=== PATIENT | male | born 1945 | race Caucasian/White ===

== ENCOUNTER → 2017-10-26 | Outpatient (CLI) | payer MEDICARE ==
[~2017-10-26] MED LIST: AZIT500T47 PO; BENZ-23 PO; CEP500 PO; CLOT15CR6 TP; CLOT15CR64 TP; COLD AND COUGH PO; GUAI-645 PO; HYDR-2966 PO; HYDR12.558 PO; HYDR12.561 PO; HYDR473S4 PO; LORA-630 PO; NAPR220C12 PO; OMEP-137 PO; PNEU0.5D3 IM; PRE20 PO; PRED20TA6 PO; RAMI10CA52 PO; RANI-324 PO
[2017-10-26 12:44] LABS: PLATELET COUNT, AUTOMATED 239 K/uL (150-450)
[2017-10-26 13:23] LABS: LDL CHOLESTEROL 101 mg/dl
== END ==
LOC: LAB 12:28
PROVIDERS: ATTEND Internal Medicine
DX: Z12.5 Encounter for screening for malignant neoplasm of prostate (principal); I10 Essential (primary) hypertension; Z86.19 Personal history of other infectious and parasitic diseases
CPT/HCPCS: 36415; 81001; 84443; 85025; G0103; 82040; 82247; 82310; 82374; 82435; 82465; 82565; 82947; 83718; 84075; 84132; 84153; 84155; 84295; 84450; 84460; 84478; 84520

== ENCOUNTER 2018-06-01 13:47 | Emergency (ER) | payer MEDICARE ==
[~2018-06-01 13:47] MED LIST changes: -RAMI10CA52 PO; +RAMI10CA9 PO; -RANI-324 PO; +RANI-366 PO
--- NOTE | 2018-06-01 13:49 | ER Report ---
History and Physical Time Seen By MD: 13:49 (BIANCA KUMAR MD) HPI/ROS CHIEF COMPLAINT: Fall, head injury HISTORY OF PRESENT ILLNESS: Patient is a 72-year-old male with no prior cardiac history who presents emergency Department with chest pain that began approximately 90 minutes ago. The pain began spontaneously was nonexertional. He does seem to have a pleuritic component to it is described as discomfort all across the chest and to both arms there is no radiation down the neck. Patient states pain is currently 6 out of 10 in intensity. The pain does not seem exertional or reproducible to palpation. Patient does state that he was doing some chest presses and flies yesterday as exercise. No prior similar episodes in the past. Patient is a former smoker quit 10 years ago has a history of borderline high cholesterol which is not treated and hypertension. He shouldn't denies nausea or vomiting and denies diaphoresis. REVIEW OF SYSTEMS: Constitutional: No fever, no chills. Eyes: No discharge. ENT: No sore throat. Cardiovascular: Chest pain Respiratory: No cough, no shortness of breath. Gastrointestinal: No abdominal pain, no vomiting. Genitourinary: No hematuria. Musculoskeletal: No back pain. Skin: No rashes. Neurological: No headache. (BIANCA KUMAR MD) Allergies: Coded Allergies: losartan (Verified Allergy, Unknown, 06/01/18) venom-wasp (Verified Allergy, Unknown, SWELLING, 06/01/18) Home Meds Active Scripts Ramipril (RAMIPRIL) 10 Mg Capsule, 10 MG PO QDAY, #90 TAB 3 Refills Prov:MENDOZA JAMES MD 01/01/18 Hydrochlorothiazide (HYDROCHLOROTHIAZIDE) 25 Mg Tablet, 1 TAB PO QDAY, #90 TAB 3 Refills Prov:MENDOZA JAMES MD 01/01/18 Discontinued Reported Medications Omeprazole (OMEPRAZOLE) 20 Mg Tablet.dr, 20 MG PO QDAY, TAB 03/02/15 Discontinued Scripts Clotrimazole/Betamethasone Dip (CLOTRIMAZOLE-BETAMETHASONE CRM) 15 Gm Cream..g., 1 DIOR TP BID for 7 Days, #1 TUBE 0 Refills Prov:BARRY MADRIGAL APRN [employer] 08/05/17 Past Medical/Surgical History History of tinnitus, hypertension, hepatitis C, gastroesophageal reflux disease, skin cancer (BIANCA KUMAR MD) Hx Smoking: Yes (1 cig a day) Smoking Status: Former Smoker (BIANCA KUMAR MD) Constitutional Vital Sign - Last 24 Hours 06/01/18 06/01/18 06/01/18 06/01/18 13:47 13:50 13:52 13:52 Temp 97.8 Pulse ??? 70 67 Resp 16 B/P (MAP) 173/99 (123) 173/99 Pulse Ox 97 98 O2 Delivery Room Air 06/01/18 06/01/18 06/01/18 06/01/18 13:57 14:00 14:02 14:04 Pulse 62 65 Resp 22 12 B/P (MAP) 165/108 (127) Pulse Ox 98 99 O2 Flow Rate 2.0 06/01/18 06/01/18 06/01/18 06/01/18 14:07 14:12 14:15 14:17 Pulse 64 62 62 Resp 28 31 19 B/P (MAP) 170/108 (128) Pulse Ox 94 97 97 06/01/18 06/01/18 06/01/18 06/01/18 14:22 14:27 14:30 14:32 Pulse 56 59 54 Resp 27 16 12 B/P (MAP) 156/93 (114) Pulse Ox 97 98 96 06/01/18 06/01/18 06/01/18 06/01/18 14:37 14:42 14:45 14:47 Pulse 54 58 56 Resp 12 13 8 B/P (MAP) 140/82 (101) Pulse Ox 96 97 98 06/01/18 06/01/18 06/01/18 06/01/18 14:52 14:57 15:00 15:02 Pulse 53 58 51 Resp 8 16 16 B/P (MAP) 121/76 (91) Pulse Ox 97 93 97 06/01/18 06/01/18 06/01/18 15:07 15:12 15:15 Pulse 52 51 Resp 21 9 B/P (MAP) 121/79 (93) Pulse Ox 98 97 (LAURORA,HUY V DO) Physical Exam General/Constitutional: Patient is awake, alert, nontoxic and in no acute respiratory distress. Head: Normocephalic and atraumatic. Eyes: Conjunctival clear, Pupils are equal and reactive to light. Extraocular muscles are intact and symmetrical. Sclera are clear and anicteric. Ears:External canals are clear. Tympanic membranes are clear with normal landmarks and light reflex. Nares: No rhinorrhea or bleeding. Turbinates are pink and moist. Oropharyngeal: Mucous membranes are moist. There is no pharyngeal erythema or exudate. Neck: Supple, no adenopathy. Cardiovascular: Heart is regular rate and rhythm without audible murmurs, rubs or gallops. Pulmonary: Lungs are clear to auscultation bilaterally. There are no wheezes, rales, or rhonchi. Chest rise is symmetrical Abdomen: Soft, nontender, no guarding or peritoneal signs. Extremities: No gross deformities, No peripheral cyanosis. Able to move all 4 extremities. Neuro: Alert and oriented X3, Skin: No rashes, skin is warm dry and well perfused. (BIANCA KUMAR MD) Medical Decision Making Data Points Result Diagram: 06/01/18 1355 06/01/18 1355 Laboratory Hematology Test 06/01/18 13:55 06/01/18 17:51 Red Blood Count 5.08 M/uL (4.00-5.60) Mean Corpuscular Volume 96.6 fL (80.0-96.0) Mean Corpuscular Hemoglobin 33.8 pg (26.0-33.0) Mean Corpuscular Hemoglobin Concent 35.0 g/dL (32.0-36.0) Red Cell Distribution Width 13.4 % (11.5-14.5) Mean Platelet Volume 8.1 fL (7.2-11.1) Neutrophils (%) (Auto) 72.2 % (39.4-72.5) Lymphocytes (%) (Auto) 18.0 % (17.6-49.6) Monocytes (%) (Auto) 7.9 % (4.1-12.4) Eosinophils (%) (Auto) 1.6 % (0.4-6.7) Basophils (%) (Auto) 0.3 % (0.3-1.4) Nucleated RBC Relative Count (auto) 0.0 /100WBC Neutrophils # (Auto) 4.6 K/uL (2.0-7.4) Lymphocytes # (Auto) 1.1 K/uL (1.3-3.6) Monocytes # (Auto) 0.5 K/uL (0.3-1.0) Eosinophils # (Auto) 0.1 K/uL (0.0-0.5) Basophils # (Auto) 0.0 K/uL (0.0-0.1) Nucleated RBC Absolute Count (auto) 0.00 K/uL Prothrombin Time 12.6 seconds (12.0-14.4) Prothromb Time International Ratio 0.95 Activated Partial Thromboplast Time 27 seconds (23-35) Sodium Level 140 mmol/L (137-145) Potassium Level 4.0 mmol/L (3.5-5.0) Chloride Level 99 mmol/L (98-107) Carbon Dioxide Level 29 mmol/L (22-30) Blood Urea Nitrogen 17 mg/dl (9-21) Creatinine 1.00 mg/dl (0.66-1.25) Glomerular Filtration Rate Calc > 60.0 Random Glucose 85 mg/dl (75-110) Calcium Level 9.5 mg/dl (8.4-10.2) Total Bilirubin 0.6 mg/dl (0.2-1.3) Aspartate Amino Transf (AST/SGOT) 35 U/L (0-35) Alanine Aminotransferase (ALT/SGPT) 43 U/L (0-56) Alkaline Phosphatase 57 U/L (0-126) Total Protein 7.9 g/dl (6.3-8.2) Albumin 4.5 g/dl (3.5-5.0) Troponin I < 0.012 ng/ml Chemistry Test 06/01/18 13:55 06/01/18 17:51 White Blood Count 6.3 k/uL (4.5-11.0) Red Blood Count 5.08 M/uL (4.00-5.60) Hemoglobin 17.2 g/dL (14.0-18.0) Hematocrit 49.1 % (42.0-52.0) Mean Corpuscular Volume 96.6 fL (80.0-96.0) Mean Corpuscular Hemoglobin 33.8 pg (26.0-33.0) Mean Corpuscular Hemoglobin Concent 35.0 g/dL (32.0-36.0) Red Cell Distribution Width 13.4 % (11.5-14.5) Platelet Count 242 K/uL (150-450) Mean Platelet Volume 8.1 fL (7.2-11.1) Neutrophils (%) (Auto) 72.2 % (39.4-72.5) Lymphocytes (%) (Auto) 18.0 % (17.6-49.6) Monocytes (%) (Auto) 7.9 % (4.1-12.4) Eosinophils (%) (Auto) 1.6 % (0.4-6.7) Basophils (%) (Auto) 0.3 % (0.3-1.4) Nucleated RBC Relative Count (auto) 0.0 /100WBC Neutrophils # (Auto) 4.6 K/uL (2.0-7.4) Lymphocytes # (Auto) 1.1 K/uL (1.3-3.6) Monocytes # (Auto) 0.5 K/uL (0.3-1.0) Eosinophils # (Auto) 0.1 K/uL (0.0-0.5) Basophils # (Auto) 0.0 K/uL (0.0-0.1) Nucleated RBC Absolute Count (auto) 0.00 K/uL Prothrombin Time 12.6 seconds (12.0-14.4) Prothromb Time International Ratio 0.95 Activated Partial Thromboplast Time 27 seconds (23-35) Glomerular Filtration Rate Calc > 60.0 Calcium Level 9.5 mg/dl (8.4-10.2) Total Bilirubin 0.6 mg/dl (0.2-1.3) Aspartate Amino Transf (AST/SGOT) 35 U/L (0-35) Alanine Aminotransferase (ALT/SGPT) 43 U/L (0-56) Alkaline Phosphatase 57 U/L (0-126) Total Protein 7.9 g/dl (6.3-8.2) Albumin 4.5 g/dl (3.5-5.0) Troponin I < 0.012 ng/ml Coagulation Test 06/01/18 13:55 Prothrombin Time 12.6 seconds Prothromb Time International Ratio 0.95 Activated Partial Thromboplast Time 27 seconds (HUY MUNSON DO) EKG/Imaging EKG Interpretation EKG shows normal sinus rhythm with a ventricular rate of [address] segment or T-wave abnormalities are noted. Monitor Interpretation: Normal Sinus Rhythm (BIANCA KUMAR MD) ED Course/Re-evaluation Clinical Indication for ER IV: IV Access ED Course 06/01/2018 2:04:36 pm and at this time will be cardiac workup differential diagnosis includes but is not limited to acute coronary syndrome non-STEMI, STEMI, pneumonia, pneumothorax, gastritis or esophagitis. (BIANCA KUMAR MD) ED Course 06/01/2018 4:48:38 pm Pt signed out to me pending second troponin kaitlin at 1750. Pt states he still has this chest discomfort. States nitro did not help. Fentanyl 'just made me tired but did not help the pain". Pain is not reproducible by palpation however he is able to reproduce it when he moves his arms up and down as if he is weight lifting. Pt working out the day before. will attempt toradol in case it is muscle skeletal. 06/01/2018 5:48:58 pm Lab coming down for second troponin. Repeat ekg was completed and shows NSR with sinus arrhythmia @64 otherwise appeared normal. If second troponin is negative then pt will dc home to follow up with pcp. 06/01/2018 6:27:42 pm Pts trop is negative. Pt had no relief with the nitro or fentanyl that was given initially but feels the toradol helped. Pt has alieve at home. told to use the alieve and recommend heating pad to chest wall. Pt is to follow up [facility] pcp. Pt told no heart attack today however without a stresstest or cath we can not rule out heart ds. pt understands will need follow up. Decision to Disposition Date: Jun 01, 2018 Decision to Disposition Time: 18:28 (HUY MUNSON DO) Depart Departure Latest Vital Signs Vital Signs Date Time Temp Pulse Resp B/P (MAP) Pulse Ox O2 Delivery O2 Flow Rate FiO2 06/01/18 15:15 121/79 (93) 06/01/18 15:12 51 9 97 06/01/18 14:04 2.0 06/01/18 13:52 97.8 Room Air (HUY MUNSON DO) Impression: Primary Impression: Chest wall pain Condition: Improved Disposition: HOME OR SELF-CARE Referrals: MENDOZA JAMES MD (PCP) Patient Instructions: Chest Wall Pain (ED) Additional Instructions: Your blood work and electrocardiograms today for your heart did not show a heart attack. Although you did not have a heart attack you could have heart disease. It is important that you follow up with your family doctor. Recommend to rest your chest and limit push ups and upper weights until feeling better. BIANCA KUMAR MD Jun 01, 2018 13:49 HUY MUNSON DO Jun 01, 2018 16:50
[2018-06-01] MEDS ORDERED: ASPIRIN 81 MG CHEW PO ONE (13:50)
--- NOTE | 2018-06-01 14:00 | EKG ---
FACILITY: [facility] PATIENT NAME: NAEEM NAVA : [id number] MR: [id number] V: [id number] EXAM DATE: ORDERING PHYSICIAN: BIANCA KUMAR TECHNOLOGIST: NIRMAL Anton Reason : CP Blood Pressure : / mmHG Vent. Rate : 065 BPM Atrial Rate : 065 BPM P-R Int : 202 ms QRS Dur : 100 ms QT Int : 402 ms P-R-T Axes : -01 -31 037 degrees QTc Int : 418 ms Normal sinus rhythm Left axis deviation Cannot rule out Anterior infarct , age undetermined Abnormal ECG No previous ECGs available Confirmed by NAEEM POSADA ([id number]) on 06/01/2018 10:16:54 PM Referred By: JOSÉ Confirmed By:NAEEM POSADA
[2018-06-01 14:09] LABS: PLATELET COUNT, AUTOMATED 242 K/uL (150-450)
[2018-06-01] MEDS ORDERED: NITROGLYCERIN OINT 1 GM PKT TP ONE (14:10)
[2018-06-01 14:24] LABS: INR 0.95
[2018-06-01] MEDS ORDERED: fentaNYL CITR 100 MCG/2 ML AMP IVP ONE (14:35)
--- NOTE | 2018-06-01 14:39 | EKG ---
FACILITY: [facility] [place] PATIENT NAME: NAEEM NAVA : [id number] MR: [id number] V: [id number] EXAM DATE: ORDERING PHYSICIAN: BIANCA KUMAR TECHNOLOGIST: NIRMAL Anton Reason : REPEAT CP Blood Pressure : / mmHG Vent. Rate : 048 BPM Atrial Rate : 048 BPM P-R Int : 208 ms QRS Dur : 100 ms QT Int : 430 ms P-R-T Axes : -02 -22 041 degrees QTc Int : 384 ms Marked sinus bradycardia Abnormal ECG When compared with ECG of 01-JUN-2018 13:54, No significant change was found Confirmed by NAEEM POSADA ([id number]) on 06/01/2018 10:17:00 PM Referred By: JOSÉ Confirmed By:NAEEM POSADA
--- NOTE | 2018-06-01 15:41 | RADIOLOGY IMAGING REPORT ---
FACILITY: [facility] PATIENT NAME: Rahul Hobson : 1945 MR: [id number] V: [id number] EXAM DATE: ORDERING PHYSICIAN: BIANCA KUMAR TECHNOLOGIST: Location: [facility] Patient: Rahul Hobson : 1945 Visit/Account:[id number] Date of Sevice: 06/01/2018 CHEST SINGLE AP Indication: Chest pain. Previous smoker.. Comparison: None available Findings: Cardiomediastinal silhouette and pulmonary vessels within normal limits. There is no focal infiltrate or lobar consolidation. No pneumothorax or pleural effusion. No nodule. Chronic interstitial changes. Upper abdomen is unremarkable. No acute bony abnormality. IMPRESSION: 1. No acute cardiopulmonary process. Report Dictated By: Vidal Savage at 06/01/2018 3:35 PM Report E-Signed By: Vidal Savage at 06/01/2018 3:36 PM WSN:[id number]
[2018-06-01] MEDS ORDERED: KETOROLAC 30 MG/ML VIAL IVP ONE (16:45)
--- NOTE | 2018-06-01 17:54 | EKG ---
[place] [facility] [place]IENT NAME: NAEEM NAVA : [id number] MR: [id number] V: [id number] EXAM DATE: ORDERING PHYSICIAN: HUY MUNSON TECHNOLOGIST: NIRMAL Anton Reason : REPEAT CP Blood Pressure : / mmHG Vent. Rate : 064 BPM Atrial Rate : 064 BPM P-R Int : 204 ms QRS Dur : 100 ms QT Int : 424 ms P-R-T Axes : 049 -20 034 degrees QTc Int : 437 ms Normal sinus rhythm with sinus arrhythmia Normal ECG When compared with ECG of 01-JUN-2018 14:35, No significant change was found Confirmed by NAEEM POSADA ([id number]) on 06/01/2018 10:17:16 PM Referred By: ER Confirmed By:NAEEM POSADA
[2018-06-01 18:01] VITALS: BP 137/79
== END 2018-06-01 18:40 | disposition home or self-care (01) ==
LOC: ER 14:25
DX: R07.89 Other chest pain (principal)
CPT/HCPCS: 36415; 71045; 84484; 85025; 85610; 85730; 93005; 96374; 96375; 99284; A9270; J1885; J3010; 82040; 82247; 82310; 82374; 82435; 82565; 82947; 84075; 84132; 84155; 84295; 84450; 84460; 84520

== ENCOUNTER → 2018-09-29 | Outpatient (CLI) | payer MEDICARE ==
[~2018-09-29] MED LIST changes: +ASPI-1471 PO; +ATOR20TA65 PO; +FLU180SY11 IM
--- NOTE | 2018-09-29 15:50 | RADIOLOGY IMAGING REPORT ---
FACILITY: [facility] PATIENT NAME: Rahul Hobson : 1945 MR: [id number] V: [id number] EXAM DATE: ORDERING PHYSICIAN: LEESA CURRAN TECHNOLOGIST: Location: [facility] [place] Patient: Rahul Hobson : 1945 Visit/Account:[id number] Date of Sevice: 09/29/2018 CAROTID History: Amaurosis fugax Additional History: None Comparison: None A color flow Doppler duplex ultrasound scan was performed on the carotid and vertebral arteries bilat erally. Measurement of carotid stenosis is based on velocity parameters that correlate the residual internal carotid diameter with [place] Symptomatic Carotid Endarterectomy Trial (NASCET)- base d stenosis levels. Right carotid peak systolic velocities are as follows: Superior right ICA - 61 cm/sec. Mid right ICA - 86 cm/sec. Proximal right ICA - 83 cm/sec. Right carotid bulb - 95 cm/sec. Superior right CCA - 116 cm/sec. Mid right CCA- 143 cm/sec. Inferior right CCA- 122 cm/sec. Proximal right ECA- 122 cm/sec. Mid right vertebral- 37 cm/sec. Right ICA/CCA ratio- 0.6 ( normal < 2.0 ). Findings: There is a small amount of plaque seen in the right carotid bulb extending into the proxim al right internal carotid artery Left carotid peak systolic velocities are as follows: Superior left ICA - 77 cm/sec. Mid left ICA- 76 cm/sec. Proximal left ICA- 89 cm/sec. Left carotid bulb- 68 cm/sec. Superior left CCA- 86 cm/sec. Mid left CCA- 95 cm/sec. Inferior left CCA- 170 cm/sec. Proximal left ECA- 97 cm/sec. Mid left vertebral- 36 cm/sec. Left ICA/CCA ratio- 0.9 ( normal < 2.0). Findings: No appreciable vascular plaque IMPRESSION: Mild atherosclerotic plaque seen in the right carotid bulb extending into the proximal right technology risk intern al carotid artery. Less than 50% stenosis. No physiologically significant stenosis. Report Dictated By: Delfin Franco MD at 09/29/2018 3:40 PM Report E-Signed By: Delfin Franco MD at 09/29/2018 3:45 PM WSN:[id number]
== END ==
LOC: US 01:13
PROVIDERS: ATTEND Internal Medicine Cardiovascular Disease
DX: I65.21 Occlusion and stenosis of right carotid artery (principal)
CPT/HCPCS: 93880

== ENCOUNTER → 2018-11-05 | Outpatient (CLI) | payer MEDICARE ==
[2018-11-05 08:41] LABS: PLATELET COUNT, AUTOMATED 174 K/uL (150-450)
[2018-11-05 09:13] LABS: LDL CHOLESTEROL 42 mg/dl
== END ==
LOC: LAB 08:22
PROVIDERS: ATTEND Internal Medicine
DX: Z12.5 Encounter for screening for malignant neoplasm of prostate (principal); I10 Essential (primary) hypertension; E78.5 Hyperlipidemia, unspecified; E78.00 Pure hypercholesterolemia, unspecified
CPT/HCPCS: 81001; 84443; 85025; G0103; 82040; 82247; 82310; 82374; 82435; 82465; 82565; 82947; 83718; 84075; 84132; 84153; 84155; 84295; 84450; 84460; 84478; 84520